=== PATIENT | female | born 1975 | race Caucasian/White ===

== ENCOUNTER 2018-07-22 12:05 | Emergency (ER) | payer BC ==
[2018-07-22] MEDS ORDERED: Lidocaine PATCH 5%* 1 PATCH TRANSDERM ONE (12:44)
[2018-07-22] MEDS ORDERED: Cyclobenzaprine TAB* 10 MG PO ONE (12:44)
[2018-07-22] MEDS ORDERED: oxyCODONE TAB* 5 MG TAB PO ONE (12:44)
--- NOTE | 2018-07-22 13:04 | ED ---
Back Pain - HPI Summary HPI Summary: 43-year-old female presents with left sided back pain today. She slipped and fell on her porch. She denies any head injury. No neck pain. No loss conscious. No nausea no vomiting. She is not on blood thinners. She admits some numbness and tingling in her left leg. Denies any loss of bowel or bladder. no saddle anaesthesia. No fever. She hasn't taking any for pain. She has past medical history of gastritic bypass and htn. She has history of back pain but never this location. She denies any midline back pain. is able to ambulate. no other injury. - History of Current Complaint Chief Complaint: EDBackInjuryPain Stated Complaint: FALL/PAIN ON LT SIDE Time Seen by Provider: 07/22/18 12:33 Pain Intensity: 8 - Allergies/Home Medications Allergies/Adverse Reactions: Allergies Allergy/AdvReac Type Severity Reaction Status Date / Time MS Levofloxacin Allergy Mild Dizziness Verified 01/18/13 18:45 [From Levaquin] MS NSAIDs [NSAIDs] Allergy See Comment Verified 10/28/14 05:56 PMH/Surg Hx/FS Hx/Imm Hx Endocrine/Hematology History: Reports: Hx Thyroid Disease Denies: Hx Anticoagulant Therapy Cardiovascular History: Reports: Hx Hypertension - Surgical History Surgery Procedure, Year, and Place: UTERINE ABLASION Infectious Disease History: Yes Infectious Disease History: Denies: Traveled Outside the [place] in Last 30 Days - Family History Known Family History: Positive: Hypertension - Social History Alcohol Use: None Substance Use Type: Reports: None Smoking Status (MU): Never Smoked Tobacco Review of Systems Negative: Fever Negative: Chest Pain Negative: Shortness Of Breath Positive: Myalgia - back pain All Other Systems Reviewed And Are Negative: Yes Physical Exam Triage Information Reviewed: Yes Vital Signs On Initial Exam: Initial Vitals Temp Pulse Resp BP Pulse Ox 97 F 64 17 157/115 99 07/22/18 12:26 07/22/18 12:26 07/22/18 12:26 07/22/18 12:26 07/22/18 12:26 Vital Signs Reviewed: Yes Appearance: Positive: Well-Appearing Skin: Positive: Warm, Dry Head/Face: Positive: Normal Head/Face Inspection Eyes: Positive: Normal, Conjunctiva Clear ENT: Positive: Pharynx normal Respiratory/Lung Sounds: Positive: Clear to Auscultation, Breath Sounds Present Cardiovascular: Positive: Normal, RRR Musculoskeletal: Positive: Strength/ROM Intact - back, Other - no midline tenderness, tenderness left side of back [place] over SI joint, neg SLR, good pulses , sensation grossly intact Neurological: Positive: Normal, Normal Gait Psychiatric: Positive: Normal Diagnostics - Vital Signs Vital Signs Temp Pulse Resp BP Pulse Ox 07/22/18 12:26 97 F 64 17 157/115 99 - Laboratory Lab Statement: Any lab studies that have been ordered have been reviewed, and results considered in the medical decision making process. Re-Evaluation - Re-Evaluation First Eval Re-Evaluation Time: 13:24 Change: Improved Comment: pain improved, no midline pain Back Pain Course/Dx - Course Course Of Treatment: 43-year-old female presents with left sided back pain today. She slipped and fell on her porch. She denies any head injury. No neck pain. No loss conscious. No nausea no vomiting. She is not on blood thinners. She admits some numbness and tingling in her left leg. Denies any loss of bowel or bladder. no saddle anaesthesia. No fever. She hasn't taking any for pain. She has past medical history of gastritic bypass and htn. She has history of back pain but never this location. She denies any midline back pain. is able to ambulate. no other injury. on exam no midline tenderness back. tenderness to left side of backe. neg SLR. neurovascular intact. will treat with tyenlol and lidocaine patch and flexeril. did not get xray as no midline pain. patient understand and agrees with plan. - Diagnoses Differential Diagnosis/HQI/PQRI: Positive: Herniated Disc, Strain, Sprain Provider Diagnoses: Back pain, Hip pain Discharge - Sign-Out/Discharge Documenting (check all that apply): Patient Departure - Discharge Plan Condition: Good Disposition: HOME Prescriptions: Cyclobenzaprine TAB* [Flexeril 10 MG TAB*] 10 mg PO TID PRN #21 tab PRN Reason: Pain Lidocaine PATCH 5%* [Lidoderm 5% Patch*] 1 patch TRANSDERM DAILY #5 patch Patient Education Materials: Back Pain (ED) Referrals: Lisa Aaron NP [Primary Care Provider] - Additional Instructions: Take muscle relaxers three times a day Apply lidocaine patches to area for up to 12 hours in one 24 hour period Use Tylenol for pain every 6 hours ice/heat area, move as much as possible Follow up with primary within 5 days Return to ED if develop any new or worsening symptoms - Billing Disposition and Condition Condition: GOOD Disposition: Home
[2018-07-22 13:51] VITALS: BP 0/0
== END 2018-07-22 13:49 | disposition home or self-care (01) ==
LOC: ED 12:05
DX: M54.9 Dorsalgia, unspecified (principal); M25.552 Pain in left hip
CPT/HCPCS: 99282; A9270-GY

== ENCOUNTER 2019-02-16 15:06 | Emergency (ER) | payer BC ==
[2019-02-16] MEDS ORDERED: cefTRIAXone VIAL(*) 1,000 MG VIAL IM ONE (17:20)
[2019-02-16] MEDS ORDERED: Ondansetron ODT TAB* 4 MG PO ONE (17:21)
--- NOTE | 2019-02-16 17:21 | ED ---
Lower Extremity - HPI Summary HPI Summary: A 43 y/o F presents to ED with atraumatic, erythema to LLE by ankle onset last night. She states having these episodes of sudden-onset cellulitis before, usually she takes Keflex which works. It occurs on both legs. Associated sx: n/v , TERAN, mild SOB, chills. Denies: CP. PMHx: HTN, denies DM. She does not have a menstrual cycle. - History of Current Complaint Chief Complaint: EDExtremityLower Stated Complaint: I THINK I HAVE A INFECTION IN LEFT LEG PER PT Time Seen by Provider: 02/16/19 16:46 Hx Obtained From: Patient Onset/Duration: Still Present Severity Initially: Moderate Severity Currently: Severe Pain Intensity: 8 Pain Scale Used: 0-10 Numeric Timing: Constant Location: Is Discrete @ - LLE above ankle Associated Signs And Symptoms: Positive: Other - pos: n/v, TERAN, mild SOB, chills. neg: CP. Able to Bear Weight: Yes - Allergies/Home Medications Allergies/Adverse Reactions: Allergies Allergy/AdvReac Type Severity Reaction Status Date / Time MS Levofloxacin Allergy Mild Dizziness Verified 01/18/13 18:45 [From Levaquin] MS NSAIDs [NSAIDs] Allergy See Comment Verified 10/28/14 05:56 Home Medications: Home Medications Atenolol TAB* [Tenormin TAB* 25 MG] 25 mg PO BID 02/16/19 [History Confirmed ] Biotin 5,000 mcg SL DAILY 02/16/19 [History Confirmed 02/16/19] Calcium Citrate/Vitamin D3 [Calcium Citrate W/D] 1 tab PO DAILY 02/16/19 [ History Confirmed 02/16/19] Cyanocobalamin TAB* [Vitamin B12 TAB*] 1,000 mcg PO DAILY 02/16/19 [History Confirmed 02/16/19] FLUoxetine CAP* [PROzac CAP*] 20 mg PO DAILY 02/16/19 [History Confirmed ] Ferrous Sulfate TAB* 325 mg PO DAILY 02/16/19 [History Confirmed 02/16/19] Multivitamins/Minerals TAB* [Theragran/minerals TAB*] 1 tab PO DAILY 02/16/19 [ History Confirmed 02/16/19] PMH/Surg Hx/FS Hx/Imm Hx Previously Healthy: No Endocrine/Hematology History: Reports: Hx Thyroid Disease Denies: Hx Anticoagulant Therapy Cardiovascular History: Reports: Hx Hypertension - Surgical History Surgery Procedure, Year, and Place: UTERINE ABLASION Infectious Disease History: No Infectious Disease History: Denies: Traveled Outside the [place] in Last 30 Days - Family History Known Family History: Positive: Hypertension - Social History Occupation: Employed Full-time Lives: With Family Alcohol Use: None Hx Substance Use: No Substance Use Type: Reports: None Hx Tobacco Use: No Smoking Status (MU): Never Smoked Tobacco Review of Systems Positive: Chills Negative: Chest Pain Positive: Shortness Of Breath Positive: Vomiting, Nausea Skin: Other - pos: erythema to LLE near ankle Positive: Headache All Other Systems Reviewed And Are Negative: Yes Physical Exam - Summary Physical Exam Summary: Constitutional: Well-developed, Well-nourished, Alert. (-) Distressed Skin: Warm, Dry. Blanching erythema on LLE extending up 1/3 of leg 1/3 - it is non-edematous and mildly warm. HENT: Normocephalic; Atraumatic Eyes: Conjunctiva normal Neck: Musculoskeletal ROM normal neck. (-) JVD, (-) Stridor, (-) Tracheal deviation Cardio: Rhythm regular, rate normal, Heart sounds normal; Intact distal pulses; The pedal pulses are 2+ and symmetric. Radial pulses are 2+ and symmetric. (-) Murmur Pulmonary/Chest wall: Effort normal. (-) Respiratory distress, (-) Wheezes, (-) Rales Abd: Soft, (-) tenderness, (-) Distension, (-) Guarding, (-) Rebound Musculoskeletal: (-) Edema Lymph: (-) Cervical adenopathy Neuro: Alert, Oriented x3 Psych: Mood and affect Normal Triage Information Reviewed: Yes Vital Signs On Initial Exam: Initial Vitals Temp Pulse Resp BP Pulse Ox 99.6 F 97 18 159/97 98 02/16/19 15:10 02/16/19 15:10 02/16/19 15:10 02/16/19 15:10 02/16/19 15:10 Vital Signs Reviewed: Yes Diagnostics - Vital Signs Vital Signs Temp Pulse Resp BP Pulse Ox 02/16/19 16:58 99.2 F 75 18 129/85 93 02/16/19 15:10 99.6 F 97 18 159/97 98 - Laboratory Lab Statement: Any lab studies that have been ordered have been reviewed, and results considered in the medical decision making process. Re-Evaluation - Re-Evaluation 1 Re-Evaluation Time: 18:29 Change: Improved Comment: Pt is feeling better, she's up and ambulating. Lower Extremity Course/Dx - Course Course Of Treatment: Pt is a 43 y/o F presenting with atraumatic, erythema to LLE by ankle onset last night. She states having these episodes of sudden-onset cellulitis before, usually she takes Keflex which works. PMHx: HTN, denies DM. Will not US at this time since she has had these sx previous times that was successfully treated with Keflex. Pt given Zofran and Rocephin in ED. Will discharge patient home with Keflex. Discharge - Sign-Out/Discharge Documenting (check all that apply): Patient Departure - DC Patient Received Moderate/Deep Sedation with Procedure: No - Discharge Plan Condition: Good Disposition: HOME Prescriptions: Cephalexin CAP* [Keflex CAP*] 500 mg PO QID #36 cap Patient Education Materials: Cellulitis (ED) Print Language: UGANDAN Referrals: Lisa Aaron NP [Primary Care Provider] - Additional Instructions: Return to the ED if redness spreads significantly or if you get high fevers, start feeling ill or have any other concerns. Expect a small amount of spreading of the redness and possible low-grade fevers for the next 24h. - Attestation Statements Document Initiated by Scribe: Yes Documenting Scribe: Jose Hobbs Provider For Whom Scribe is Documenting (Include Credential): Dr. Anna Galvan MD Scribe Attestation: I, Jose Hobbs, scribed for Dr. Anna Galvan MD on at 2002. Status of Scribe Document: Ready
[2019-02-16] MEDS ORDERED: Sterile Water for Inj* 10 ML ONE (17:35)
[2019-02-16] MEDS ORDERED: Acetaminophen TAB* 325 MG PO ONE (18:19)
[2019-02-16 19:06] VITALS: BP 109/68
== END 2019-02-16 19:05 | disposition home or self-care (01) ==
LOC: ED 15:06
DX: L03.116 Cellulitis of left lower limb (principal); R11.2 Nausea with vomiting, unspecified; R51 Headache; R06.02 Shortness of breath; R68.83 Chills (without fever); I10 Essential (primary) hypertension; Z88.6 Allergy status to analgesic agent; Z88.1 Allergy status to other antibiotic agents
CPT/HCPCS: 96372; 99283; A9270-GY; J0696

== ENCOUNTER 2019-04-09 17:58 | Emergency (ER) | payer BC ==
--- OUTSIDE RECORDS SUMMARY | 2019-04-09 18:03 | XMS REPORT | Continuity of Care Document ---
:1975 External Reference #:[id number] Author Name Nancy Yadav Care Team Providers Name Role Phone Lisa Aaron NP Primary Care Physician Unavailable Payers Date Identification Numbers Payment Provider Subscriber Effective: 2014 Policy Number: [id number] [employer] Josiah Kalen PayID: [id number] [address] [address] [place] [address] Advance Directives Description No Information Available Problems Description No Information Family History Date Family Member(s) Observation Comments General Cancer Aunt, Grandfather maternal side Father Heart Disease Mother Hypertension Siblings 3 2 sisters, brother-passed Social History Type Date Description Comments Sex Unknown Marital Status 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 Tobacco Use Start: Unknown Never Smoked Cigarettes Smoking Status Reviewed: 04/07/19 Never Smoked Cigarettes ETOH Use Never used alcohol Tobacco Use Start: Unknown Patient has never smoked Recreational Drug Use Never Used Drugs Exercise Type/Frequency Exercises regularly 3 days a week Allergies, Adverse Reactions, Alerts Active Allergies Reaction Severity Comments Date Levaquin Dizziness 03/04/2019 NSAIDs due to gastric bypass 03/04/2019 Medications Active Medications SIG Qnty Indications Ordering Provider Date Levothyroxine Sodium Unknown 50mcg Tablets Lisinopril Unknown 20mg Tablets Fluoxetine HCL Unknown 20mg Capsules Atenolol Unknown 25mg Tablets Multivitamin Adult 1 by mouth Unknown Tablets every day Biotin 1 by mouth once Unknown 5000mcg Capsules daily Iron 1 by mouth Unknown 325(65Fe) mg Tablets every day Immunizations Description No Information Available Vital Signs Date Vital Result Comment 04/07/2019 9:30am Height 66 inches 5'6" Weight 259.00 lb Heart Rate 74 /min BP Systolic Sitting 118 mmHg left upper arm large cuff BP Diastolic Sitting 80 mmHg left upper arm large cuff Respiratory Rate 14 /min O2 % BldC Oximetry 97 % BMI (Body Mass Index) 41.8 kg/m2 03/04/2019 9:04am Height 66 inches 5'6" Weight 364.00 lb Heart Rate 62 /min BP Systolic Sitting 124 mmHg Rue Lg Cuff BP Diastolic Sitting 84 mmHg Rue Lg Cuff Respiratory Rate 16 /min O2 % BldC Oximetry 95 % BMI (Body Mass Index) 58.7 kg/m2 Neck Circumference in inches 18 Results Description No Information Available Procedures Date Code Description Status 03/09/2019 27614 Sleep Study Unattended,HRT Rate,Oxygen Sat,Resp Completed Effort/Airflow Encounters Type Date Location Provider Dx Diagnosis Office Visit 03/04/2019 [facility], G47.33 Obstructive sleep 9:30a [facility] apnea (adult) [facility] (pediatric) E66.9 Obesity, unspecified Z68.43 Body mass index (BMI) 50-59.9, adult Plan of Treatment Future Appointment(s):05/28/2019 10:30 am - Jessica Otoole DNP, RN, DIRECTOR OF LITIGATION-BC at [facility]04/07/2019 - Jessica Otoole DNP, RN, DIRECTOR OF LITIGATION- BCG47.33 Obstructive sleep apnea (adult) (pediatric)Comments:HST sleep apnea, with significant hypoxemiaFollow up:6 weeksRecommendations:Sleep apnea to resume CPAP at 5-12 cm Review of sleep study in detail. Review of risks of untreated sleep apnea including cardiovascular events: rhythm irregularities, heart attack, stroke; gastro esophageal reflux disease (GERD); diabetes; anxiety , depression; high blood pressure; accidents (machinery and automobile) Recommendation for PAP other treatment modalities NON-PAP including oral appliance/mandibular advancement device, positional strategies , and surgery discussed. Referral for PAP device to be sent to [facility] phone : [phone] Equipment appointment will take about 45 minutes, the DME provider will call you within 5 days to set you up for the device. If you do not hear from them call the Sleep Center. The mask will have a 30-day guarantee , if you have mask problems call the DME provider to have a fitting for a different mask. Need distilled water for humidifier CPAP mask and tubing Cleaning Wipe off mask daily (baby wipe-no scent, or warm water) Clean mask, tubing, filter, and water chamber weekly in mild no scent dish soap and water. Hang to dry. If youhave problems with the air pressure call the sleep center and speak to a nurse. If you have any further questions, please call the [facility] at [phone]. If you have any sleepiness while driving you MUST avoid operating a vehicle or machinery.E66.9 Obesity, unspecifiedRecommendations:Avoid weight gain Continue working with Amy Aguilar NP at [facility]68.41 Body mass index (BMI) 40.0-44.9, adultRecommendations:See assessment #2
--- NOTE | 2019-04-09 18:04 | UC ---
Dental HPI - HPI Summary HPI Summary: 43 yo female presents with dental pain. She tells me that she had a very deep filling in one of her bottom right teeth and this fell out several months ago. Today she was eating breakfast and that same tooth broke and the nerve has been exposed. She has had significant pain since that time. Unable to chew on that side due to pain. She does not have a dentist, but goes to the [facility] - they cannot see her until next tuesday 04/17. She cannot take po NSAIDs due hx of gastric bypass and tylenol is not helping her. - History of Current Complaint Stated Complaint: DENTAL COMPLAINT Time Seen by Provider: 04/09/19 18:03 Hx Obtained From: Patient Onset/Duration: Sudden Onset Severity: Severe Pain Intensity: 10 Pain Scale Used: 0-10 Numeric - Allergies/Home Medications Allergies/Adverse Reactions: Allergies Allergy/AdvReac Type Severity Reaction Status Date / Time levofloxacin [From Levaquin] Allergy Dizziness Verified 04/09/19 18:08 NSAIDS (Non-Steroidal Allergy See Comment Verified 04/09/19 18:08 Anti-Inflamma Home Medications: Home Medications Acetaminophen [Extra Strength Non-Aspirin] 1,500 mg PO 04/09/19 [History] PMH/Surg Hx/FS Hx/Imm Hx - Additional Past Medical History Additional PMH: Bariatric surgery status Endocrine History: Hypothyroidism Cardiovascular History: Hypertension Psychological History: Anxiety, Depression Other History Of: Negative For: Anticoagulant Therapy - Surgical History Surgical History: Yes Surgery Procedure, Year, and Place: UTERINE ABLASION - Family History Known Family History: Positive: Hypertension - Social History Lives: With Family Alcohol Use: None Substance Use Type: None Smoking Status (MU): Never Smoked Tobacco Review of Systems All Other Systems Reviewed And Are Negative: Yes Constitutional: Positive: Negative Skin: Positive: Negative Eyes: Positive: Negative ENT: Positive: Dental Pain Respiratory: Positive: Negative Cardiovascular: Positive: Negative Neurovascular: Positive: Negative Neurological: Positive: Negative Psychological: Positive: Negative Physical Exam - Summary Physical Exam Summary: GENERAL: NAD. Obese. Mild pain distress. SKIN: No rashes, sores, lesions, or open wounds. HEENT: Nose: Nasal mucosa pink and moist. NTTP maxillary and frontal sinus. Throat: Posterior oropharynx without exudates, erythema, or tonsillar enlargement. Uvula midline. No trismus. NECK: Supple. Nontender. No lymphadenopathy. CHEST: No accessory muscle use. Breathing comfortably and in no distress. CV: Pulses intact. Cap refill <2seconds NEURO: Alert. PSYCH: Age appropriate behavior. Triage Information Reviewed: Yes Vital Signs: Vital Signs: Temp Pulse Resp BP Pulse Ox 96.2 F 75 18 193/114 100 04/09/19 18:04 04/09/19 18:04 04/09/19 18:04 04/09/19 18:04 04/09/19 18:04 Vital Signs Reviewed: Yes Dental: Positive: Percussion Tenderness @ - Tooth #30, Gross Decay/Caries @ - Throughout, Dental Fracture @ - Tooth #30, Other: - Multiple missing/pulled teeth. Negative: Abscess @, Cellulitis @, Cervical Lymphadenopathy, Bleeding Dental Complaint Course/Dx - Course Course Of Treatment: Tooth #30 fracture with exposed nerve root. She has taken percocet in the past with good relief of pain. Will rx for a short supply of this today in addition to viscous lidocaine. Strongly encouraged to keep appointment with dentist for next week for further treatment. iSTOP: Reference #: [id number] - Differential Dx/Diagnosis Provider Diagnosis: Tooth fracture Discharge - Sign-Out/Discharge Documenting (check all that apply): Patient Departure All imaging exams completed and their final reports reviewed: No Studies - Discharge Plan Condition: Stable Disposition: HOME Prescriptions: Lidocaine 2% VISCOUS* [Xylocaine 2% Viscous*] 15 ml SWISH SPIT Q6H PRN #250 ml PRN Reason: Pain oxyCODONE/Acetamin 5/325 MG* [Percocet 5/325 TAB*] 1 tab PO Q8H PRN #9 tab MDD 3 PRN Reason: Pain Patient Education Materials: Toothache (ED) Referrals: Lisa Aaron NP [Primary Care Provider] - Additional Instructions: If you develop a fever, shortness of breath, chest pain, new or worsening symptoms - please call your PCP or go to the ED immediately. Your blood pressure was high at todays visit. Please see your primary provider within 4 weeks for recheck and re-evaluation. 1) Please schedule an appointment with a dentist for further treatment of your tooth or see the [facility] on Friday04/17/19 - Billing Disposition and Condition Condition: STABLE Disposition: Home - Attestation Statements Provider Attestation: This patient was not seen by me. I was available for consult.
[2019-04-09 18:08] VITALS: BP 193/114
== END 2019-04-09 18:28 | disposition home or self-care (01) ==
LOC: UCEAST 17:58
DX: S02.5XXA Fracture of tooth (traumatic), initial encounter for closed fracture (principal); K02.9 Dental caries, unspecified; X58.XXXA Exposure to other specified factors, initial encounter; Y92.9 Unspecified place or not applicable; E03.9 Hypothyroidism, unspecified; I10 Essential (primary) hypertension; F41.9 Anxiety disorder, unspecified; F32.9 Major depressive disorder, single episode, unspecified; Z98.84 Bariatric surgery status; Z88.6 Allergy status to analgesic agent; Z88.1 Allergy status to other antibiotic agents
CPT/HCPCS: 99212; G0463

== ENCOUNTER 2020-01-15 12:04 | Emergency (ER) | payer BC ==
--- NOTE | 2020-01-15 13:04 | ED ---
Head Injury - HPI Summary HPI Summary: This pt is a 44 Y/O F presenting to [facility] with a CC of L sided ocular and L facial pressure that had been present since 01/10/2020 and worsening since this date, 01/15/2020. Pt states that she was sick on Friday night and passes out while she went to the bathroom. She received a brain CT at urgent care following the event due to swelling around her L orbital which is still present. She states that she has N/V, L sided headache, and neck stiffness. The neck stiffness and headache is rated an 8/10 in severity. She denies any SOB, CP , abdominal pain, and visual changes. She states that she has been sick since Friday with influenza but has been feeling less sick. She states that she has no aggravating or alleviating factors. She states that she has a PMHx of HTN and a gastric bypass which only let her take APAP since the injury. - History Of Current Complaint Chief Complaint: EDHeadInjury Stated Complaint: HEAD PRESSURE FROM FALL PER PT Time Seen by Provider: 01/15/20 12:18 Hx Obtained From: Patient Hx Last Menstrual Period: uterine ablation Mechanism Of Injury: Fall From A Standing Position Onset/Duration: Started Days Ago - 5, Still Present, Worse Since - 01/15/2020 Onset of Pain: Immediate Severity Currently: Moderate Severity Initially: Severe Pain Intensity: 8 Pain Scale Used: 0-10 Numeric Location of Head Injury: Frontal - L orbital, Parietal - L side Character: Pressure Aggravating Factor(s): Other: - Nothing Alleviating Factor(s): Other: - Nothing Associated Signs And Symptoms: Negative - SOB, CP, abdominal pain, and visual changes, Neck Pain - stiffness, Nausea, Vomiting, Swelling - L orbital, Fever, Headache - Allergies/Home Medications Allergies/Adverse Reactions: Allergies Allergy/AdvReac Type Severity Reaction Status Date / Time levofloxacin [From Levaquin] Allergy Dizziness Verified 01/15/20 12:10 NSAIDS (Non-Steroidal Allergy See Comment Verified 01/15/20 12:10 Anti-Inflamma PMH/Surg Hx/FS Hx/Imm Hx Previously Healthy: Yes Endocrine/Hematology History: Reports: Hx Thyroid Disease Denies: Hx Anticoagulant Therapy Cardiovascular History: Reports: Hx Hypertension - Cancer History Hx Chemotherapy: No Hx Radiation Therapy: No - Surgical History Surgical History: Yes Surgery Procedure, Year, and Place: UTERINE ABLASION, gastric bypass 2012 - Immunization History Immunizations Up to Date: Yes Infectious Disease History: No Infectious Disease History: Denies: Traveled Outside the [place] in Last 30 Days - Family History Known Family History: Positive: Hypertension - Social History Occupation: Employed Full-time Lives: Alone Alcohol Use: None Hx Substance Use: No Substance Use Type: Reports: None Hx Tobacco Use: No Smoking Status (MU): Never Smoked Tobacco Review of Systems Positive: Fever Eyes: Negative Negative: Chest Pain Negative: Shortness Of Breath Positive: Vomiting, Nausea. Negative: Abdominal Pain Positive: Other - L sided orbital and parietal pain Positive: Bruising - L orbital Positive: Headache All Other Systems Reviewed And Are Negative: Yes Physical Exam - Summary Physical Exam Summary: Constitutional: Well-developed, Well-nourished, Alert. (-) Distressed Skin: Warm, Dry HENT: Normocephalic; Traumatic, L frontal contusion, tender to palpation, no deformity, tender inferior to L orbit, no C spine tenderness. Eyes: Conjunctiva normal, No evidence of EOM entrapment. Neck: Musculoskeletal ROM normal neck. (-) JVD, (-) Stridor, (-) Tracheal deviation Cardio: Rhythm regular, rate normal, Heart sounds normal; Intact distal pulses; The pedal pulses are 2+ and symmetric. Radial pulses are 2+ and symmetric. (-) Murmur Pulmonary/Chest wall: Effort normal. (-) Respiratory distress, (-) Wheezes, (-) Rales Abd: Soft, (-) tenderness, (-) Distension, (-) Guarding, (-) Rebound Musculoskeletal: (-) Edema Lymph: (-) Cervical adenopathy Neuro: Alert, Oriented x3 Psych: Mood and affect Normal Triage Information Reviewed: Yes Vital Signs On Initial Exam: Initial Vitals Temp Pulse Resp BP Pulse Ox 98.1 F 77 17 208/113 99 01/15/20 12:06 01/15/20 12:06 01/15/20 12:06 01/15/20 12:06 01/15/20 12:06 Vital Signs Reviewed: Yes Procedures - Sedation Patient Received Moderate/Deep Sedation with Procedure: No Diagnostics - Vital Signs Vital Signs Temp Pulse Resp BP Pulse Ox 01/15/20 12:06 98.1 F 77 17 208/113 99 - Laboratory Lab Statement: Any lab studies that have been ordered have been reviewed, and results considered in the medical decision making process. - CT Brain CT CT Interpretation Completed By: Radiologist Summary of CT Findings: Improved left scalp hematoma. No evidence of intracranial mass or hemorrhage. is noted. ED physician has reviewed this report. Head Injury Course/Dx Course Of Treatment: This pt is a 44 Y/O F presenting to [facility] with a CC of L sided ocular and L facial pressure that had been present since 01/10/2020 and worsening since the onset. Pt states that she was sick on Friday night and passes out while she went to the bathroom. She received a brain CT at urgent care following the event. She states that she has N/V, L sided headache, and neck stiffness. The neck stiffness and headache is rated an 8/10 in severity. She denies any SOB, CP, abdominal pain, and visual changes. Her PE found the following: L frontal contusion, tender to palpation, no deformity, tender inferior to L orbit, no C spine tenderness. No evidence of EOM entrapment. Her Brain CT shows the following: Improved left scalp hematoma. No evidence of intracranial mass or hemorrhage is noted. She will be discharged home with a Dx of a facial contusion and head injury. - Diagnoses Provider Diagnoses: Head injury, Facial contusion Discharge ED - Sign-Out/Discharge Documenting (check all that apply): Patient Departure - discharge - Discharge Plan Condition: Stable Disposition: HOME Patient Education Materials: Head Injury (ED), Facial Contusion (ED) Referrals: Lisa Aaron NP [Primary Care Provider] - 2 Days Additional Instructions: PLEASE FOLLOW UP WITH YOUR PRIMARY CARE PROVIDER IN 1-3 DAYS AND RETURN TO THE EMERGENCY DEPARTMENT FOR ANY NEW OR WORSENING SYMPTOMS. - Billing Disposition and Condition Condition: STABLE Disposition: Home - Attestation Statements Document Initiated by Antonella: Yes Documenting Scribe: Julio César Hunter Provider For Whom Antonella is Documenting (Include Credential): Vinay Red DO Scribe Attestation: Julio César Palma scribed for Vinay Red DO on 01/15/20 at 1536. Scribe Documentation Reviewed: Yes Provider Attestation: The documentation as recorded by the Julio César french accurately reflects the service I personally performed and the decisions made by Vinay ochoa DO Status of Scribe Document: Viewed
[2020-01-15 14:03] VITALS: BP 142/91
== END 2020-01-15 13:59 | disposition home or self-care (01) ==
LOC: ED 12:04
DX: S00.83XA Contusion of other part of head, initial encounter (principal); S09.90XA Unspecified injury of head, initial encounter; W18.30XA Fall on same level, unspecified, initial encounter; Y92.002 Bathroom of unspecified non-institutional (private) residence as the place of occurrence of the external cause; E07.9 Disorder of thyroid, unspecified; I10 Essential (primary) hypertension; Z98.84 Bariatric surgery status; Z88.8 Allergy status to other drugs, medicaments and biological substances
CPT/HCPCS: 70450; 99282

== ENCOUNTER 2020-02-19 20:32 | Emergency (ER) | payer BC ==
--- NOTE | 2020-02-19 20:48 | ED ---
Lower Extremity - HPI Summary HPI Summary: Patient complains of fever, chills, vomiting starting last night with redness to left lower extremity starting today. Denies trauma. Patient states history of sudden onset lower extremity cellulitis, usually improved with Keflex. Denies cough, sore throat, CP, SOB, abdominal pain, change in urine, change in BM. Medical history is HTN, hypothyroid. - History of Current Complaint Chief Complaint: EDExtremityLower Stated Complaint: FEVER,VOMITING, REDDNESS ON LEFT LEG PER PT Time Seen by Provider: 02/19/20 20:41 Hx Obtained From: Patient Hx Last Menstrual Period: uterine ablation Mechanism Of Injury: Unknown Onset of Pain: Hours Onset/Duration: Hours Severity Initially: Moderate Severity Currently: Moderate Pain Intensity: 6 Pain Scale Used: 0-10 Numeric Timing: Constant Location: Is Discrete @ Associated Signs And Symptoms: Positive: Redness Aggravating Factor(s): Weight Bearing Alleviating Factor(s): Elevation Able to Bear Weight: Yes - Allergies/Home Medications Allergies/Adverse Reactions: Allergies Allergy/AdvReac Type Severity Reaction Status Date / Time levofloxacin [From Levaquin] Allergy Dizziness Verified 02/19/20 20:35 NSAIDS (Non-Steroidal Allergy See Comment Verified 02/19/20 20:35 Anti-Inflamma Home Medications: Home Medications Levothyroxine TAB* [Synthroid 75 MCG TAB*] 75 mcg PO DAILY 12/31/12 [History Confirmed 01/10/20] Lisinopril TAB* [Prinivil TAB*] 20 mg PO BID 07/22/18 [History Confirmed ] Atenolol TAB* [Tenormin TAB* 25 MG] 25 mg PO BID 02/16/19 [History Confirmed 09/19] Cyanocobalamin TAB* [Vitamin B12 TAB*] 1,000 mcg PO DAILY 02/16/19 [History Confirmed 01/10/20] Ferrous Sulfate TAB* 325 mg PO DAILY 02/16/19 [History Confirmed 01/10/20] Multivitamins/Minerals TAB* [Theragran/minerals TAB*] 1 tab PO DAILY 02/16/19 [ History Confirmed 01/10/20] Acetaminophen [Extra Strength Non-Aspirin] 1,000 mg PO PRN 04/09/19 [History] Ondansetron ODT TAB* [Zofran 4 MG Odt TAB*] 4 mg PO PRN 01/10/20 [History] Oseltamivir CAP* [Tamiflu CAP*] 75 mg PO BID 01/10/20 [History Confirmed ] DOXYcycline CAP(*) [DOXYcycline 100MG CAP(*)] 100 mg PO BID 10 Days #20 cap [Rx] Ondansetron ODT TAB* [Zofran 4 MG Odt TAB*] 4 mg PO Q8H PRN 4 Days #14 tab.odt 02/19/20 [Rx] PMH/Surg Hx/FS Hx/Imm Hx Endocrine/Hematology History: Reports: Hx Thyroid Disease Denies: Hx Anticoagulant Therapy Cardiovascular History: Reports: Hx Hypertension History: Denies: Hx Dialysis Sensory History: Denies: Hx Eye Prosthesis Opthamlomology History: Denies: Hx Legally Blind EENT History: Denies: Hx Deafness - Cancer History Hx Chemotherapy: No Hx Radiation Therapy: No - Surgical History Surgery Procedure, Year, and Place: UTERINE ABLASION, gastric bypass 2012 Infectious Disease History: No Infectious Disease History: Denies: Traveled Outside the [place] in Last 30 Days - Family History Known Family History: Positive: Hypertension - Social History Alcohol Use: None Hx Substance Use: No Substance Use Type: Reports: None Hx Tobacco Use: No Smoking Status (MU): Never Smoked Tobacco Review of Systems Positive: Fever, Chills Eyes: Negative ENT: Negative Cardiovascular: Negative Respiratory: Negative Gastrointestinal: Negative Genitourinary: Negative Musculoskeletal: Other Skin: Other Neurological/Mental Status: Negative Psychological: Normal All Other Systems Reviewed And Are Negative: Yes Physical Exam Triage Information Reviewed: Yes Vital Signs On Initial Exam: Initial Vitals Temp Pulse Resp BP Pulse Ox 99.3 F 105 18 181/117 98 02/19/20 20:34 02/19/20 20:34 02/19/20 20:34 02/19/20 20:34 02/19/20 20:34 Vital Signs Reviewed: Yes Appearance: Positive: Well-Appearing Skin: Positive: Warm Head/Face: Positive: Normal Head/Face Inspection Eyes: Positive: Normal Neck: Positive: Supple Respiratory/Lung Sounds: Positive: Clear to Auscultation Cardiovascular: Positive: Normal Abdomen Description: Positive: Nontender Musculoskeletal: Positive: Normal Neurological: Positive: Normal Psychiatric: Positive: Normal AVPU Assessment: Alert - [place] Coma Scale Best Eye Response: 4 - Spontaneous Best Motor Response: 6 - Obeys Commands Best Verbal Response: 5 - Oriented Coma Scale Total: 15 Procedures - Sedation Patient Received Moderate/Deep Sedation with Procedure: No Diagnostics - Vital Signs Vital Signs Temp Pulse Resp BP Pulse Ox 02/19/20 20:34 99.3 F 105 18 181/117 98 - Laboratory Lab Statement: Any lab studies that have been ordered have been reviewed, and results considered in the medical decision making process. Lower Extremity Course/Dx - Course Course Of Treatment: Patient complains of fever, chills, vomiting starting last night with redness to left lower extremity starting today. Denies trauma. Patient states history of sudden onset lower extremity cellulitis, usually improved with Keflex. Denies cough, sore throat, CP, SOB, abdominal pain, change in urine, change in BM. Medical history is HTN, hypothyroid. Elevated BP 181/117. History of hypertension currently taking medication. Heart rate 105 in triage. Subsequent heart rate less than 100. Vital signs otherwise within normal limits. - Diagnoses Provider Diagnoses: Cellulitis Discharge ED - Sign-Out/Discharge Documenting (check all that apply): Patient Departure - Discharge Plan Condition: Stable Disposition: HOME Prescriptions: DOXYcycline CAP(*) [DOXYcycline 100MG CAP(*)] 100 mg PO BID 10 Days #20 cap Patient Education Materials: Cellulitis (ED) Referrals: Lisa Aaron NP [Primary Care Provider] - Additional Instructions: Take doxycycline twice a day for 10 days as directed. Take doxycycline at least 2 hours apart from your iron pill. Take Tylenol 650 mg every 4 hours as needed for fever control. Take Zofran as directed for nausea. Drink plenty of fluids to maintain hydration. Return to the ED for any worsening symptoms. - Billing Disposition and Condition Condition: STABLE Disposition: Home
[2020-02-19] MEDS ORDERED: Ondansetron ODT TAB* 4 MG PO ONE (21:06)
[2020-02-19] MEDS ORDERED: Sulfamethox/Trimethoprim DS 800/160* TAB PO ONE (21:06)
[2020-02-19] MEDS ORDERED: DOXYcycline CAP(*) 100 MG PO ONE (21:07)
[2020-02-19 21:44] VITALS: BP 171/109
== END 2020-02-19 21:40 | disposition home or self-care (01) ==
LOC: ED 20:32
DX: L03.116 Cellulitis of left lower limb (principal); R50.9 Fever, unspecified; I10 Essential (primary) hypertension; E03.9 Hypothyroidism, unspecified; Z88.6 Allergy status to analgesic agent; Z79.890 Hormone replacement therapy; Z79.899 Other long term (current) drug therapy; Z98.84 Bariatric surgery status
CPT/HCPCS: 99282; A9270-GY

== ENCOUNTER 2020-09-09 16:36 | Inpatient (IN) ==
[2020-09-09] MEDS ORDERED: Clindamycin 600 MG/D5W BAG 600 MG/50 ML BAG IV ONE (17:11)
[2020-09-09] MEDS ORDERED: NS 0.9% 1000 ml BAG 1,000 ML IV ONE ×2 (17:11→18:58)
[2020-09-09 18:04] LABS: ABS Lymphocytes 0.6 10^3/ul (1.0-4.8); ABS Monocytes 0.3 10^3/ul (0-0.8); ABS Neutrophils 5.2 10^3/ul (1.5-7.7); Eosinophil % 0.1 %; Hematocrit 36 % (35-47); Hemoglobin 11.7 g/dL (12.0-16.0); Lymphocyte % 9.7 %; Mean Corpuscular HGB Conc 32 g/dL (31-36); Mean Corpuscular Hemoglobin 26 pg (27-31); Mean Corpuscular Volume 80 fL (80-97); Mean Platelet Volume 9.1 fL (7.4-10.4); Platelet Count 189 10^3/uL (150-450); Red Blood Count 4.54 10^6 /uL (3.70-4.87); Red Cell Distribution Width 16 % (10-15); White Blood Count 6.1 10^3/uL (3.5-10.8)
[2020-09-09 18:37] LABS: Albumin 3.6 g/dL (3.2-5.2); BUN/Creatinine Ratio 16.5 (8-20); C Reactive Protein 200.46 mg/L (<8.01); Calcium 8.8 mg/dL (8.6-10.3); EGFR African American 69.8 (>60); EGFR Non-African American 57.7 (>60); Globulin 3.5 g/dL (2-4); Potassium 3.6 mmol/L (3.5-5.0); Total Bilirubin 0.5 mg/dL (0.2-1.0); Total Protein 7.1 g/dL (6.4-8.9)
[2020-09-09 19:27] LABS: Erythrocyte Sed Rate 62 mm/Hr (0-19)
[2020-09-09] MEDS ORDERED: Morphine 2 MG/ML SYRINGE IV ONE (19:34)
[2020-09-09] MEDS ORDERED: Ondansetron 4 mg VIAL 2 MG/ML 2 ml VIAL IV ONE (19:34)
[2020-09-09] MEDS ORDERED: Ondansetron 4 mg VIAL 2 MG/ML 2 ml VIAL IV PRN (19:38)
[2020-09-09] MEDS ORDERED: hydrALAZINE 20 mg/ml 1 ML Vial IV IV SLOW PU PRN (19:44)
[2020-09-09] MEDS ORDERED: Enoxaparin 40 MG/0.4 ML SYR SUBCUT SCH (20:00)
[2020-09-09 20:02] LABS: Magnesium 1.8 mg/dL (1.9-2.7)
[2020-09-09] MEDS ORDERED: Enoxaparin 100 MG/ML SYR SUBCUT ONE (20:36)
[2020-09-09] MEDS ORDERED: Enoxaparin 80 MG/0.8 ML SYR SUBCUT ONE (20:36)
[2020-09-09 20:37] LABS: TSH Ultra Thyroid Stim Horm 3.21 mcIU/mL (0.34-5.60)
[2020-09-09] MEDS ORDERED: Magnesium Sulfate 2 gm BAG 2 GM/50 ML BAG IVPB ONE (20:38)
[2020-09-09] MEDS ORDERED: Iodixanol (CONTRAST) 320 MG/ML 100 ML SDV IV ONE (20:40)
[2020-09-09] MEDS: DOXYcycline 100 MG in NS 0.9% 250 ml 250 ML IVPB SCH (21:58)
[2020-09-09] MEDS: NS 0.9% 1000 ml BAG 1,000 ML IV SCH (21:58)
[2020-09-10] MEDS: oxyCODONE/Acetamin 5/325 mg TAB PO PRN ×2 (00:22→15:40)
[2020-09-10 06:45] LABS: ABS Lymphocytes 0.9 10^3/ul (1.0-4.8); ABS Monocytes 0.4 10^3/ul (0-0.8); ABS Neutrophils 3.6 10^3/ul (1.5-7.7); Eosinophil % 0.4 %; Hematocrit 32 % (35-47); Hemoglobin 10.3 g/dL (12.0-16.0); Lymphocyte % 17.4 %; Mean Corpuscular HGB Conc 33 g/dL (31-36); Mean Corpuscular Hemoglobin 26 pg (27-31); Mean Corpuscular Volume 81 fL (80-97); Mean Platelet Volume 8.8 fL (7.4-10.4); Nucleated Red Blood Cells % 0.1; Platelet Count 170 10^3/uL (150-450); Red Cell Distribution Width 16 % (10-15)
[2020-09-10 07:26] LABS: BUN/Creatinine Ratio 15.1 (8-20); Calcium 7.9 mg/dL (8.6-10.3); Potassium 3.8 mmol/L (3.5-5.0)
[2020-09-10] MEDS: DOXYcycline 100 MG in NS 0.9% 250 ml 250 ML IVPB SCH (09:46)
[2020-09-10] MEDS: NS 0.9% 1000 ml BAG 1,000 ML IV SCH (09:48)
[2020-09-10] MEDS: Clindamycin 600 MG/D5W BAG 600 MG/50 ML BAG IV SCH (16:56)
[2020-09-10 18:14] LABS: Urine Appearance Clear; Urine Bilirubin Negative (Negative); Urine Blood 2+ (Negative); Urine Color Yellow; Urine Glucose Negative (Negative); Urine Ketones Negative (Negative); Urine Nitrite Negative (Negative); Urine Protein Negative (Negative); Urine Specific Gravity 1.013 (1.010-1.030); Urine Urobilinogen Negative (Negative)
[2020-09-10 18:21] LABS: Urine Bacteria 1+ (Absent); Urine Red Blood Cell 1+(3-5/hpf) (Absent); Urine Squamous Epithelial Cell Present (Absent); Urine White Blood Cell Trace(0-5/hpf) (Absent)
[2020-09-10] MEDS: Enoxaparin 40 MG/0.4 ML SYR SUBCUT SCH (20:51)
[2020-09-10] MEDS ORDERED: DOXYcycline 100 MG in NS 0.9% 250 ml 250 ML IVPB SCH (21:00)
[2020-09-11] MEDS: Clindamycin 600 MG/D5W BAG 600 MG/50 ML BAG IV SCH ×3 (00:37→16:39)
[2020-09-11 07:22] LABS: ABS Lymphocytes 0.8 10^3/ul (1.0-4.8); ABS Monocytes 0.5 10^3/ul (0-0.8); ABS Neutrophils 3.1 10^3/ul (1.5-7.7); Eosinophil % 0.9 %; Hematocrit 29 % (35-47); Hemoglobin 9.4 g/dL (12.0-16.0); Lymphocyte % 17.8 %; Mean Corpuscular HGB Conc 33 g/dL (31-36); Mean Corpuscular Hemoglobin 27 pg (27-31); Mean Corpuscular Volume 80 fL (80-97); Nucleated Red Blood Cells % 0.1; Platelet Count 158 10^3/uL (150-450); Red Blood Count 3.54 10^6 /uL (3.70-4.87); Red Cell Distribution Width 16 % (10-15); White Blood Count 4.5 10^3/uL (3.5-10.8)
[2020-09-11 09:24] LABS: Total Iron Binding Capacity 326 mcg/dL (250-450); Transferrin 233 mg/dL (203-362)
[2020-09-11 09:39] LABS: % Iron Saturation 6 % (15-55); Iron < 20 ug/dL (50-212); Unsaturated Iron Binding < 311 ug/dL
[2020-09-11 09:44] LABS: Ferritin 73.7 ng/mL (11-307)
[2020-09-11] MEDS: Prochlorperazine 5 mg/ml 2 ml VIAL (10 mg) IV PRN (11:04)
[2020-09-11 18:21] LABS: LDH 192 U/L (140-271)
[2020-09-11] MEDS: Enoxaparin 40 MG/0.4 ML SYR SUBCUT SCH (22:21)
[2020-09-12] MEDS: Clindamycin 600 MG/D5W BAG 600 MG/50 ML BAG IV SCH ×2 (01:11→09:08)
[2020-09-12 07:01] LABS: Hematocrit 30 % (35-47); Hemoglobin 9.8 g/dL (12.0-16.0); Mean Corpuscular HGB Conc 32 g/dL (31-36); Mean Corpuscular Hemoglobin 26 pg (27-31); Mean Corpuscular Volume 81 fL (80-97); Mean Platelet Volume 8.9 fL (7.4-10.4); Platelet Count 170 10^3/uL (150-450); Red Blood Count 3.72 10^6 /uL (3.70-4.87); Red Cell Distribution Width 16 % (10-15); White Blood Count 4.3 10^3/uL (3.5-10.8)
[2020-09-12 07:37] LABS: Calcium 8.1 mg/dL (8.6-10.3); Magnesium 1.8 mg/dL (1.9-2.7); Potassium 3.8 mmol/L (3.5-5.0)
[2020-09-12 07:42] LABS: BUN/Creatinine Ratio 14.7 (8-20); EGFR African American 100.7 (>60); EGFR Non-African American 83.2 (>60)
[2020-09-12] MEDS: Prochlorperazine 5 mg/ml 2 ml VIAL (10 mg) IV PRN (09:59)
[2020-09-12] MEDS ORDERED: Gadoteridol (CONTRAST) 279.3 MG/ML 10 ML IV ONE (10:49)
[2020-09-12 16:21] VITALS: BP 157/93
== END 2020-09-12 19:00 | disposition home or self-care (01) | DRG 720 ==
LOC: ED 16:36 → MED 16:36
PROVIDERS: ADMIT Internal Medicine Interventional Cardiology; ATTEND Internal Medicine

== ENCOUNTER 2020-09-19 10:37 | Observation (INO) ==
[2020-09-19] MEDS ORDERED: HYDROcodone/ACETAMIN 5/325 mg TAB PO ONE (12:46)
[2020-09-19 13:22] LABS: ABS Basophils 0.1 10^3/ul (0-0.2); ABS Lymphocytes 1.3 10^3/ul (1.0-4.8); ABS Monocytes 0.5 10^3/ul (0-0.8); ABS Neutrophils 6.2 10^3/ul (1.5-7.7); Eosinophil % 0.4 %; Hematocrit 35 % (35-47); Hemoglobin 11.5 g/dL (12.0-16.0); Lymphocyte % 16.2 %; Mean Corpuscular HGB Conc 33 g/dL (31-36); Mean Corpuscular Hemoglobin 26 pg (27-31); Mean Corpuscular Volume 79 fL (80-97); Mean Platelet Volume 7.6 fL (7.4-10.4); Platelet Count 446 10^3/uL (150-450); Red Blood Count 4.43 10^6 /uL (3.70-4.87); Red Cell Distribution Width 16 % (10-15); White Blood Count 8.1 10^3/uL (3.5-10.8)
[2020-09-19 13:50] LABS: Albumin 3.6 g/dL (3.2-5.2); Albumin/Globulin Ratio 0.8 (1-3); BUN/Creatinine Ratio 13.8 (8-20); C Reactive Protein 29.04 mg/L (<8.01); EGFR African American 93.4 (>60); EGFR Non-African American 77.2 (>60); Globulin 4.4 g/dL (2-4); Potassium 4.1 mmol/L (3.5-5.0); Total Bilirubin 0.4 mg/dL (0.2-1.0)
[2020-09-19] MEDS ORDERED: Iohexol 300 (CONTRAST) 10 ML SDV IV ONE (13:58)
[2020-09-19] MEDS ORDERED: Vancomycin 2,000 MG in NS 0.9% 250 ml 250 ML IVPB ONE (14:14)
[2020-09-19] MEDS ORDERED: NS 0.9% 250 ml 250 ML ONE (14:48)
[2020-09-19] MEDS ORDERED: Cefepime 2 GM in Dextrose 2 GM/50 ML BAG IV ONE (14:51)
[2020-09-19] MEDS ORDERED: Vancomycin 2,000 MG in NS 0.9% 500 ml BAG 500 ML IVPB ONE (14:53)
[2020-09-19 15:27] LABS: Erythrocyte Sed Rate 108 mm/Hr (0-19)
[2020-09-19] MEDS ORDERED: Ondansetron 4 mg VIAL 2 MG/ML 2 ml VIAL IV PRN (16:03)
[2020-09-19] MEDS: Enoxaparin 40 MG/0.4 ML SYR SUBCUT SCH (20:10)
[2020-09-19] MEDS ORDERED: Iron Sucrose 200 MG in NS 0.9% 100 ml BAG 100 ML IVPB ONE (20:30)
[2020-09-19] MEDS ORDERED: Vancomycin per Pharmacy 1 EA NOTE FOLLOW UP PRN (21:27)
[2020-09-19] MEDS ORDERED: hydrALAZINE 20 mg/ml 1 ML Vial IV IV SLOW PU ONE (21:34)
[2020-09-19] MEDS ORDERED: hydrALAZINE 20 mg/ml 1 ML Vial IV IV SLOW PU PRN (21:47)
[2020-09-19] MEDS: Vancomycin 1,250 MG in NS 0.9% 250 ml 250 ML IVPB SCH (21:53)
[2020-09-20 07:08] LABS: ABS Basophils 0.1 10^3/ul (0-0.2); ABS Eosinophils 0.1 10^3/ul (0-0.6); ABS Monocytes 0.4 10^3/ul (0-0.8); ABS Neutrophils 4.1 10^3/ul (1.5-7.7); Eosinophil % 1.1 %; Hematocrit 32 % (35-47); Hemoglobin 10.4 g/dL (12.0-16.0); Lymphocyte % 17.5 %; Mean Corpuscular HGB Conc 33 g/dL (31-36); Mean Corpuscular Hemoglobin 26 pg (27-31); Mean Corpuscular Volume 80 fL (80-97); Mean Platelet Volume 7.7 fL (7.4-10.4); Platelet Count 366 10^3/uL (150-450); Red Blood Count 3.97 10^6 /uL (3.70-4.87); Red Cell Distribution Width 16 % (10-15); White Blood Count 5.7 10^3/uL (3.5-10.8)
[2020-09-20 07:17] LABS: BUN/Creatinine Ratio 14.3 (8-20); C Reactive Protein 18.93 mg/L (<8.01); Calcium 8.4 mg/dL (8.6-10.3); EGFR Non-African American 90.1 (>60); Potassium 3.9 mmol/L (3.5-5.0)
[2020-09-20] MEDS: Vancomycin 1,250 MG in NS 0.9% 250 ml 250 ML IVPB SCH (07:26)
[2020-09-20] MEDS ORDERED: Iron Sucrose 200 MG in NS 0.9% 100 ml BAG 100 ML IVPB ONE (07:57)
[2020-09-20] MEDS ORDERED: cefTRIAXone 1 gm/50 mL NS BAG 1 GM/50 ML BAG IVPB SCH (13:00)
[2020-09-20] MEDS ORDERED: Vancomycin Trough Check NOTE FOLLOW UP ONE (14:30)
[2020-09-20] MEDS: Enoxaparin 40 MG/0.4 ML SYR SUBCUT SCH (16:11)
[2020-09-21 05:35] LABS: ABS Eosinophils 0.1 10^3/ul (0-0.6); ABS Lymphocytes 1.2 10^3/ul (1.0-4.8); ABS Monocytes 0.5 10^3/ul (0-0.8); ABS Neutrophils 3.9 10^3/ul (1.5-7.7); Eosinophil % 1.8 %; Hematocrit 33 % (35-47); Hemoglobin 10.9 g/dL (12.0-16.0); Lymphocyte % 20.1 %; Mean Corpuscular HGB Conc 33 g/dL (31-36); Mean Corpuscular Hemoglobin 26 pg (27-31); Mean Corpuscular Volume 79 fL (80-97); Mean Platelet Volume 7.8 fL (7.4-10.4); Nucleated Red Blood Cells % 0.1; Platelet Count 365 10^3/uL (150-450); Red Cell Distribution Width 16 % (10-15); White Blood Count 5.7 10^3/uL (3.5-10.8)
[2020-09-21] MEDS ORDERED: Iron Sucrose 200 MG in NS 0.9% 100 ml BAG 100 ML IVPB ONE (07:38)
[2020-09-21 12:41] VITALS: BP 129/75
== END 2020-09-21 12:45 | disposition home or self-care (01) ==
LOC: ED 10:37 → MED 10:37
PROVIDERS: ADMIT Internal Medicine; ATTEND Internal Medicine

== ENCOUNTER 2020-12-30 11:40 | Inpatient (IN) ==
[2020-12-30] MEDS ORDERED: cefTRIAXone 1 gm/50 mL NS BAG 1 GM/50 ML BAG IV ONE (14:10)
[2020-12-30] MEDS ORDERED: Ondansetron 4 mg VIAL 2 MG/ML 2 ml VIAL IV ONE (14:23)
[2020-12-30] MEDS ORDERED: Morphine 4 MG/ML VIAL (1 ml) IV ONE (14:23)
[2020-12-30] MEDS ORDERED: NS 0.9% 1000 ml BAG 1,000 ML IV ONE (14:23)
[2020-12-30] MEDS ORDERED: Iohexol 300 (CONTRAST) 10 ML SDV IV ONE (14:31)
[2020-12-30 14:33] LABS: ABS Basophils 0.1 10^3/ul (0-0.2); ABS Eosinophils 0.1 10^3/ul (0-0.6); ABS Lymphocytes 1.1 10^3/ul (1.0-4.8); ABS Monocytes 0.4 10^3/ul (0-0.8); ABS Neutrophils 5.9 10^3/ul (1.5-7.7); Eosinophil % 0.7 %; Hematocrit 37 % (35-47); Lymphocyte % 14.5 %; Mean Corpuscular HGB Conc 33 g/dL (31-36); Mean Corpuscular Hemoglobin 28 pg (27-31); Mean Corpuscular Volume 86 fL (80-97); Nucleated Red Blood Cells % 0.1; Platelet Count 247 10^3/uL (150-450); Red Blood Count 4.25 10^6 /uL (3.70-4.87); Red Cell Distribution Width 15 % (10-15); White Blood Count 7.5 10^3/uL (3.5-10.8)
[2020-12-30 14:48] LABS: Albumin 3.5 g/dL (3.2-5.2); Albumin/Globulin Ratio 0.9 (1-3); BUN/Creatinine Ratio 11.4 (8-20); C Reactive Protein 162.35 mg/L (<8.01); Calcium 9.2 mg/dL (8.6-10.3); EGFR African American 94.8 (>60); EGFR Non-African American 78.3 (>60); Globulin 3.8 g/dL (2-4); Potassium 2.9 mmol/L (3.5-5.0); Total Bilirubin 0.5 mg/dL (0.2-1.0); Total Protein 7.3 g/dL (6.4-8.9)
[2020-12-30] MEDS ORDERED: Potassium Chlor 20 meq TAB.ER PO ONE ×2 (14:52→22:23)
[2020-12-30] MEDS ORDERED: Vancomycin 2,000 MG in NS 0.9% 500 ml BAG 500 ML IVPB ONE (16:36)
[2020-12-30] MEDS ORDERED: Vancomycin per Pharmacy 1 EA NOTE FOLLOW UP PRN (18:30)
[2020-12-30] MEDS: Enoxaparin 40 MG/0.4 ML SYR SUBCUT SCH (19:31)
[2020-12-30] MEDS: Ondansetron 4 mg VIAL 2 MG/ML 2 ml VIAL IV PRN (22:51)
[2020-12-31] MEDS: Ondansetron 4 mg VIAL 2 MG/ML 2 ml VIAL IV PRN ×2 (05:53→16:06)
[2020-12-31 06:25] LABS: ABS Eosinophils 0.1 10^3/ul (0-0.6); ABS Monocytes 0.5 10^3/ul (0-0.8); ABS Neutrophils 4.5 10^3/ul (1.5-7.7); BUN/Creatinine Ratio 10.4 (8-20); Calcium 8.7 mg/dL (8.6-10.3); EGFR African American 114.7 (>60); EGFR Non-African American 94.8 (>60); Eosinophil % 1.4 %; Hematocrit 34 % (35-47); Hemoglobin 11.3 g/dL (12.0-16.0); Mean Corpuscular HGB Conc 34 g/dL (31-36); Mean Corpuscular Hemoglobin 28 pg (27-31); Mean Corpuscular Volume 85 fL (80-97); Nucleated Red Blood Cells % 0.1; Platelet Count 232 10^3/uL (150-450); Red Blood Count 3.98 10^6 /uL (3.70-4.87); Red Cell Distribution Width 15 % (10-15)
[2020-12-31 06:37] LABS: Potassium 3.6 mmol/L (3.5-5.0)
[2020-12-31] MEDS ORDERED: Vancomycin 1,500 MG in NS 0.9% 250 ml 250 ML IVPB SCH ×2 (09:00→18:00)
[2020-12-31] MEDS: Enoxaparin 40 MG/0.4 ML SYR SUBCUT SCH (16:05)
[2021-01-01] MEDS: Ondansetron 4 mg VIAL 2 MG/ML 2 ml VIAL IV PRN ×2 (01:09→14:38)
[2021-01-01] MEDS ORDERED: Vancomycin Trough Check NOTE FOLLOW UP ONE (08:30)
[2021-01-01] MEDS ORDERED: Vancomycin 1,500 MG in NS 0.9% 250 ml 250 ML IVPB SCH (09:30)
[2021-01-01 10:45] LABS: Vancomycin Trough 9.3 mcg/mL
[2021-01-01 11:05] LABS: EGFR African American 79.5 (>60); EGFR Non-African American 65.7 (>60)
[2021-01-01] MEDS: Vancomycin 1000 MG in NS 0.9% 250 ML IVPB SCH ×2 (11:07→18:20)
[2021-01-01] MEDS: Enoxaparin 40 MG/0.4 ML SYR SUBCUT SCH (16:48)
[2021-01-02] MEDS: Vancomycin 1000 MG in NS 0.9% 250 ML IVPB SCH ×2 (02:39→11:27)
[2021-01-02] MEDS ORDERED: Vancomycin Trough Check NOTE FOLLOW UP ONE (10:00)
[2021-01-02 10:40] LABS: EGFR African American 84.8 (>60); EGFR Non-African American 70.1 (>60)
[2021-01-02 14:18] VITALS: BP 135/71
[2021-01-02 14:21] LABS: C Reactive Protein 55.54 mg/L (<8.01)
[2021-01-04] MEDS ORDERED: Vancomycin Trough Check NOTE FOLLOW UP ONE (10:00)
== END 2021-01-02 14:45 | disposition home or self-care (01) | DRG 383 ==
LOC: ED 11:40 → MED 16:36
PROVIDERS: ADMIT Internal Medicine; ATTEND Pediatrics

== ENCOUNTER 2021-04-30 12:49 | Inpatient (IN) ==
[2021-04-30] MEDS ORDERED: NS 0.9% 1000 ml BAG 1,000 ML IV ONE (15:01)
[2021-04-30] MEDS ORDERED: Ondansetron 4 mg VIAL 2 MG/ML 2 ml VIAL IV ONE (15:01)
[2021-04-30 15:07] LABS: ABS Lymphocytes 0.3 10^3/ul (1.0-4.8); ABS Monocytes 0.3 10^3/ul (0-0.8); ABS Neutrophils 14.1 10^3/ul (1.5-7.7); Hematocrit 38 % (35-47); Hemoglobin 12.6 g/dL (12.0-16.0); Mean Corpuscular HGB Conc 34 g/dL (31-36); Mean Corpuscular Hemoglobin 29 pg (27-31); Mean Corpuscular Volume 85 fL (80-97); Mean Platelet Volume 8.5 fL (7.4-10.4); Platelet Count 190 10^3/uL (150-450); Red Blood Count 4.42 10^6 /uL (3.70-4.87); Red Cell Distribution Width 14 % (10-15); White Blood Count 14.7 10^3/uL (3.5-10.8)
[2021-04-30 15:20] LABS: Albumin 3.9 g/dL (3.2-5.2); Albumin/Globulin Ratio 1.3 (1-3); C Reactive Protein 52.74 mg/L (<8.01); Calcium 8.6 mg/dL (8.6-10.3); EGFR African American 62.7 (>60); EGFR Non-African American 51.8 (>60); Globulin 3.1 g/dL (2-4); Potassium 3.1 mmol/L (3.5-5.0); Total Bilirubin 0.7 mg/dL (0.2-1.0)
[2021-04-30] MEDS ORDERED: Clindamycin 900 MG/D5W BAG 900 MG/50 ML BAG IVPB ONE (15:21)
[2021-04-30] MEDS ORDERED: Potassium Chlor 20 meq TAB.ER PO ONE (15:30)
[2021-04-30] MEDS ORDERED: Lactated Ringers 1000 ml BAG 1,000 ML IV SCH (16:00)
[2021-04-30] MEDS ORDERED: Al Hydrox/Mg Hydrox/Simet LIQ 30 ML UDC PO PRN (16:02)
[2021-04-30] MEDS: Ondansetron 4 mg VIAL 2 MG/ML 2 ml VIAL IV PRN (19:30)
[2021-04-30] MEDS: Enoxaparin 40 MG/0.4 ML SYR SUBCUT SCH (20:12)
[2021-04-30] MEDS: Clindamycin 600 MG/D5W BAG 600 MG/50 ML BAG IV SCH (23:50)
[2021-05-01] MEDS: Ondansetron 4 mg VIAL 2 MG/ML 2 ml VIAL IV PRN ×3 (03:40→16:43)
[2021-05-01 05:29] LABS: ABS Lymphocytes 0.6 10^3/ul (1.0-4.8); ABS Monocytes 0.2 10^3/ul (0-0.8); ABS Neutrophils 11.6 10^3/ul (1.5-7.7); Hematocrit 39 % (35-47); Hemoglobin 13.3 g/dL (12.0-16.0); Lymphocyte % 4.8 %; Mean Corpuscular HGB Conc 34 g/dL (31-36); Mean Corpuscular Hemoglobin 29 pg (27-31); Mean Corpuscular Volume 85 fL (80-97); Red Blood Count 4.61 10^6 /uL (3.70-4.87); Red Cell Distribution Width 14 % (10-15); White Blood Count 12.4 10^3/uL (3.5-10.8)
[2021-05-01 05:31] LABS: CO2 Carbon Dioxide 20 mmol/L (22-32); Calcium 8.4 mg/dL (8.6-10.3); Chloride 98 mmol/L (101-111); Sodium 129 mmol/L (135-145)
[2021-05-01 05:36] LABS: Blood Urea Nitrogen 21 mg/dL (6-24); EGFR African American 65.4 (>60); Glucose 100 mg/dL (70-100)
[2021-05-01 05:40] LABS: Anion Gap 11 mmol/L (2-11)
[2021-05-01] MEDS: Clindamycin 600 MG/D5W BAG 600 MG/50 ML BAG IV SCH ×3 (08:00→22:59)
[2021-05-01 08:13] LABS: Mean Platelet Volume 8.3 fL (7.4-10.4); Platelet Count 201 10^3/uL (150-450)
[2021-05-01] MEDS ORDERED: Potassium Chlor 20 meq TAB.ER PO ONE (08:31)
[2021-05-01] MEDS: KCL 20 MEQ/100 ML IVPREMIX 20 MEQ/100 ML BAG IV SCH ×3 (09:54→19:50)
[2021-05-01] MEDS: NS 0.9% 1000 ml BAG 1,000 ML IV SCH (10:47)
[2021-05-01] MEDS: cefTRIAXone 1 gm/50 mL NS BAG 1 GM/50 ML BAG IVPB SCH (12:02)
[2021-05-01] MEDS ORDERED: Magnesium Sulfate 2 gm BAG 2 GM/50 ML BAG IVPB ONE (14:48)
[2021-05-01] MEDS: Enoxaparin 40 MG/0.4 ML SYR SUBCUT SCH (17:43)
[2021-05-02] MEDS: Ondansetron 4 mg VIAL 2 MG/ML 2 ml VIAL IV PRN ×4 (01:43→21:49)
[2021-05-02 07:12] LABS: ABS Lymphocytes 0.7 10^3/ul (1.0-4.8); ABS Monocytes 0.3 10^3/ul (0-0.8); ABS Neutrophils 4.4 10^3/ul (1.5-7.7); Eosinophil % 0.1 %; Hematocrit 31 % (35-47); Hemoglobin 10.8 g/dL (12.0-16.0); Lymphocyte % 12.5 %; Mean Corpuscular HGB Conc 35 g/dL (31-36); Mean Corpuscular Hemoglobin 29 pg (27-31); Mean Corpuscular Volume 84 fL (80-97); Mean Platelet Volume 8.6 fL (7.4-10.4); Platelet Count 162 10^3/uL (150-450); Red Blood Count 3.73 10^6 /uL (3.70-4.87); Red Cell Distribution Width 14 % (10-15); White Blood Count 5.4 10^3/uL (3.5-10.8)
[2021-05-02 07:22] LABS: Calcium 8.2 mg/dL (8.6-10.3); EGFR African American 83.7 (>60); EGFR Non-African American 69.2 (>60); Magnesium 2.1 mg/dL (1.9-2.7); Potassium 3.5 mmol/L (3.5-5.0)
[2021-05-02] MEDS: Clindamycin 600 MG/D5W BAG 600 MG/50 ML BAG IV SCH ×2 (08:10→17:16)
[2021-05-02] MEDS ORDERED: Potassium Chlor 20 meq TAB.ER PO ONE (08:16)
[2021-05-02] MEDS: NS 0.9% 1000 ml BAG 1,000 ML IV SCH (10:02)
[2021-05-02] MEDS: cefTRIAXone 1 gm/50 mL NS BAG 1 GM/50 ML BAG IVPB SCH (11:55)
[2021-05-02] MEDS: Enoxaparin 40 MG/0.4 ML SYR SUBCUT SCH (17:17)
[2021-05-03] MEDS: Clindamycin 600 MG/D5W BAG 600 MG/50 ML BAG IV SCH ×2 (00:06→07:57)
[2021-05-03 09:24] LABS: ABS Lymphocytes 0.7 10^3/ul (1.0-4.8); ABS Monocytes 0.2 10^3/ul (0-0.8); ABS Neutrophils 2.1 10^3/ul (1.5-7.7); Eosinophil % 0.7 %; Hematocrit 35 % (35-47); Hemoglobin 11.6 g/dL (12.0-16.0); Lymphocyte % 23.6 %; Mean Corpuscular HGB Conc 33 g/dL (31-36); Mean Corpuscular Hemoglobin 28 pg (27-31); Mean Corpuscular Volume 86 fL (80-97); Mean Platelet Volume 8.5 fL (7.4-10.4); Platelet Count 169 10^3/uL (150-450); Red Blood Count 4.08 10^6 /uL (3.70-4.87); Red Cell Distribution Width 14 % (10-15); White Blood Count 3.1 10^3/uL (3.5-10.8)
[2021-05-03 11:33] VITALS: BP 135/96
== END 2021-05-03 11:55 | disposition home or self-care (01) | DRG 720 ==
LOC: SSU 12:49 → ED 12:49 → SSU 19:00
PROVIDERS: ADMIT Hospitalist; ATTEND Hospitalist